=== PATIENT | female | born 1990 | race Caucasian/White ===

== ENCOUNTER 2017-02-18 12:57 | Emergency (ER) | payer OTHER ==
[~2017-02-18] VITALS: Ht 157.5 cm; Wt 70.5 kg
[2017-02-18 13:06] VITALS: Ht 157.5 cm; Wt 70.5 kg
[2017-02-18 16:33] LABS: BASOPHIL # 0.1 10^3/ul (0.0-0.1); BASOPHILS % 0.4 % (0.0-2.0); EOSINOPHILS # 0.1 10^3/ul (0.0-0.5); EOSINOPHILS % 0.5 % (0.0-7.0); HEMATOCRIT 39.2 % (37.0-47.0); HEMOGLOBIN 13.5 g/dl (12.0-16.0); LYMPHOCYTES % 15.4 % (15.0-51.0); MEAN CORPUSCULAR HEMOGLOBIN 30.1 pg (29.0-33.0); MEAN CORPUSCULAR HGB CONC 34.4 g/dl (32.0-37.0); MEAN CORPUSCULAR VOLUME 87.5 fl (82.0-101.0); MEAN PLATELET VOLUME 10.5 fl (7.4-10.4); MONOCYTE # 0.8 10^3/ul (0.3-0.9); NEUTROPHILS % 77.3 % (39.0-77.0); PLATELET COUNT 235 10^3/UL (140-415); RED BLOOD COUNT 4.48 10^6/ul (4.20-5.40); RED CELL DISTRIBUTION WIDTH 12.8 % (11.5-14.5); WHITE BLOOD COUNT 12.9 10^3/ul (4.8-10.8)
[2017-02-18 16:58] LABS: ADD UMIC YES; UR ASCORBIC ACID NEGATIVE (NEGATIVE); UR BACTERIA FEW /HPF (NONE SEEN); UR BILIRUBIN (Dip) NEGATIVE (NEGATIVE); UR BLOOD (Dip) 1+ mg/dL (NEGATIVE); UR CLARITY CLEAR (CLEAR); UR COLOR STRAW (YELLOW); UR GLUCOSE (Dip) NEGATIVE (NEGATIVE); UR KETONES (Dip) NEGATIVE (NEGATIVE); UR LEUKOCYTE ESTERASE (Dip) TRACE Leu/ul (NEGATIVE); UR NITRITE (Dip) NEGATIVE (NEGATIVE); UR RBC 1 /HPF (0-5); UR SPECIFIC GRAVITY (Dip) 1.005 (1.003-1.030); UR TOTAL PROTEIN (Dip) NEGATIVE (NEGATIVE); UR UROBILINOGEN (Dip) NEGATIVE (NEGATIVE)
--- NOTE | 2017-02-18 17:46 | RADRPT ---
PROCEDURE: US OB. CLINICAL INDICATION: Vaginal bleeding. Positive TECHNIQUE: Transabdominal and transvaginal views of the pelvis are available for review. COMPARISON: No prior studies are available for comparison. FINDINGS: Uterus: No evidence of masses and normal in size estimated at 8.9 x 6 x 4.7 cm. Endometrial cavity: Intrauterine gestational sac, yolk sac and pole are present with the foll owing information: [place]ion-rump length:0.97 cm heart rate:138 bpm Gestational sac:2.88 cm Ultrasound estimated gestational age:7 weeks 4 days Small hypoechoic subchorionic hemorrhage measures 0.8 x 0.6 x 0.5 cm. Right ovary/adnexa: Ovarian size is normal estimated at 3 x 2.3 x 2.2 cm. Rounded corpus luteum cy st is present estimated at 2.3 cm in greatest dimension. No adnexal mass lesion is seen. Left ovary/adnexa: Ovarian size normal estimated at 1.9 x 1.7 x 1.3 cm. No ovarian or adnexal mass lesion is seen. Cul-de-sac: There is no free fluid. RPTAT:HJJR IMPRESSION: 1. Single viable intrauterine with an estimated gestational age of 7 weeks 4 days, the es timated date of delivery 10/03/2017. 2. Subchorionic hemorrhage estimated at 0.8 cm in greatest dimension. Consider follow-up evaluatio n. 3. Right ovarian corpus luteum cyst. Physician Larisa Date Time Electronically viewed and signed by Physician Larisa on 02/18/2017 17:46 /
[2017-02-18] MEDS ORDERED: ACET325T33 PO (17:56)
--- NOTE | 2017-02-18 18:07 | ERD ---
ER Documentation Chief Complaint Date/Time DATE: 02/18/17 TIME: 18:02 Chief Complaint vaginal bleed started today with pelvic and lower back pain 7 wks HPI 26-year-old female A2 last menstrual period January 07, 7 weeks presents complaining of vaginal bleeding and intermittent moderate 7 out of 10 of pelvic pain that radiates to her lower back since today. Patient denies any fever, nausea vomiting diarrhea. States that she has an PAYMENT COLLECTOR I will see her in 2 days. ROS All systems reviewed and are negative except as per history of present illness. Medications Home Meds Active Scripts Acetaminophen* (Tylenol*) 325 Mg Tablet, 1 TAB PO Q8 Y for PAIN AND OR ELEVATED TEMP, #20 TAB Prov:MANUEL SUTTON PA-C 02/18/17 PMhx/Soc Medical and Surgical Hx: pt denies Medical Hx, pt denies Surgical Hx Physical Exam Vitals Vital Signs Date Time Temp Pulse Resp B/P Pulse Ox O2 Delivery O2 Flow Rate FiO2 02/18/17 13:06 98.6 63 18 108/53 100 Physical Exam Const: [] Head: Atraumatic Eyes: Normal Conjunctiva ENT: Normal External Ears, Nose and Mouth. Neck: Full range of motion..~ No meningismus. Resp: Clear to auscultation bilaterally Cardio: Regular rate and rhythm, no murmurs Abd: Soft, non tender, non distended. Normal bowel sounds Skin: No petechiae or rashes Back: No midline or flank tenderness Ext: No cyanosis, or edema Neur: Awake and alert Psych: Normal Mood and Affect Result Diagram: 02/18/17 1614 Results 24 hrs Laboratory Tests Test 02/18/17 16:14 02/18/17 16:26 White Blood Count 12.910^3/ul Red Blood Count 4.4810^6/ul Hemoglobin 13.5g/dl Hematocrit 39.2% Mean Corpuscular Volume 87.5fl Mean Corpuscular Hemoglobin 30.1pg Mean Corpuscular Hemoglobin Concent 34.4g/dl Red Cell Distribution Width 12.8% Platelet Count 64057^3/UL Mean Platelet Volume 10.5fl Neutrophils % 77.3% Lymphocytes % 15.4% Monocytes % 6.0% Eosinophils % 0.5% Basophils % 0.4% Nucleated Red Blood Cells % 0.0/100WBC Neutrophils # (Manual) 10.010^3/ul Lymphocytes # 2.010^3/ul Monocytes # 0.810^3/ul Eosinophils # 0.110^3/ul Basophils # 0.110^3/ul Nucleated Red Blood Cells # 0.010^3/ul Beta HCG, Quantitative 230689.0mIU/ml Urine Color STRAW Urine Clarity CLEAR Urine pH 6.0 Urine Specific [place] 1.005 Urine Ketones NEGATIVEmg/dL Urine Nitrite NEGATIVEmg/dL Urine Bilirubin NEGATIVEmg/dL Urine Urobilinogen NEGATIVEmg/dL Urine Leukocyte Esterase TRACELeu/ul Urine Microscopic RBC 1/HPF Urine Microscopic WBC 1/HPF Urine Bacteria FEW/HPF Urine Hemoglobin 1+mg/dL Urine Glucose NEGATIVEmg/dL Urine Total Protein NEGATIVEmg/dl Procedures/MDM 26-year-old female A2 last menstrual period January 07, 7 weeks presents complaining of vaginal bleeding and intermittent moderate 7 out of 10 of pelvic pain that radiates to her lower back since today. States that she has an PAYMENT COLLECTOR I will see her in 2 days. Patient likely has threatened . Low suspicion for ectopic , molar pregnancyLab work was done in the ED. Patient has mild leukocytosis likely due to stress reaction. Beta-hCG was [id number] which is elevated however I have discussed with her to continue to follow -up with her PAYMENT COLLECTOR to get repeat labs. OB ultrasound showed a small subchorionic hemorrhage. Discussed to follow-up with OBGYN. Discussed return to the ER for worsening sensitive. She understands and agrees this plan OB ultrasound: 1. Single viable intrauterine with an estimated gestational age of 7 weeks 4 days, the estimated date of delivery 10/03/2017. 2. Subchorionic hemorrhage estimated at 0.8 cm in greatest dimension. Consider follow-up evaluation. 3. Right ovarian corpus luteum cyst. Departure Diagnosis: Primary Impression: Vaginal bleeding in Condition: Stable Patient Instructions: Vaginal Bleed in Additional Instructions: Call your primary care doctor TOMORROW for an appointment during the next 1-2 days.See the doctor sooner or return here if your condition worsens before your appointment time.Return to this facility in 2 DAYS for a follow-up exam.Return sooner if your condition worsens. Return to this facility if you are not improving as expected. MANUEL SUTTON PA-C Feb 18, 2017 18:07
[2017-02-18 18:20] VITALS: BP 115/58; PULSE 72; RESP 20; TEMP 98.2
== END 2017-02-18 18:24 | disposition home or self-care (01) ==
LOC: FTE 12:57
DX: O20.9 Hemorrhage in early pregnancy, unspecified (principal); R10.2 Pelvic and perineal pain; Z3A.01 Less than 8 weeks gestation of pregnancy
CPT/HCPCS: 36415; 76801; 76817; 81001; 84702; 85025; 86900; 86901; Z7502

== ENCOUNTER 2017-05-23 15:48 | Outpatient (CLI) | payer OTHER ==
[~2017-05-23] VITALS: Ht 165.1 cm; Wt 74.9 kg
[~2017-05-23 15:48] MED LIST: ACET325T33 PO
[2017-05-23] MEDS ORDERED: PREN1TAB13 PO (16:15)
[2017-05-23 16:16] VITALS: BP 103/58; PULSE 72; RESP 18; Ht 165.1 cm; Wt 74.9 kg
--- NOTE | 2017-05-23 17:03 | RADRPT ---
PROCEDURE: US cervix CLINICAL INDICATION: labor TECHNIQUE: Limited OB ultrasound was performed to evaluate the cervix COMPARISON: No prior studies are available for comparison. FINDINGS: There is a single live intrauterine . Normal cardiac activity is identified at a rat e of 146 beats per minute. presentation is breech. Placenta is anterior grade 1-2. There is no evidence of abruption or placenta previa. Single largest pocket of amniotic fluid measures 4.9 cm. The cervix is closed and measures 3.0 cm. There is minimal funneling. IMPRESSION: 1. Single live intrauterine . 2. Cervix is closed and measures 3.0 cm RPTAT: HH .Jonny Alaniz MD, Date Time Electronically viewed and signed by .Jonny Alaniz MD, on 05/23/2017 17:03 .W/
--- NOTE | 2017-05-23 18:09 | TRIAGE ---
OB Triage Datetime Report Generated by CPN: 05/23/2017 18:09 Datetime: 05/23/2017 18:00 Stage of : OB Triage Maternal Assessment Level of Consciousness: Fully Conscious Labor Evaluation Frequency: NONE Monitor Mode: External Resting Tone [place]: Relaxed Heart Rate FHR Baseline Rate: 145 Monitor Mode: External US Variability: AGA Accelerations: AGA Decelerations: AGA Pain Assessment Pain Scale: 0 Pain Goal: 3 Vaginal Exam Membrane Status: Intact Datetime: 05/23/2017 17:00 Stage of : OB Triage Maternal Assessment Level of Consciousness: Fully Conscious Labor Evaluation Frequency: NONE Monitor Mode: External Resting Tone [place]: Relaxed Heart Rate FHR Baseline Rate: 145 Monitor Mode: External US Variability: AGA Accelerations: AGA Decelerations: AGA Pain Assessment Pain Scale: 0 Pain Goal: 3 Vaginal Exam Membrane Status: Intact Datetime: 05/23/2017 16:12 Assessment Type: Triage Maternal Assessment Level of Consciousness: Fully Conscious DTR's/Clonus: DTRs 2+; No Clonus Headache: Denies Blurred Vision: No Respiratory Effort: Unlabored; Regular Rhythm; Equal Expansion Breath Sounds, Left: Clear and Equal Breath Sounds, Right: Clear and Equal Nausea/Vomiting: Denies RUQ Epigastric Pain: Denies Lower Extremities Edema: None Degree: None Upper Extremities Edema: None Degree: None Facial Edema: None Fall Risk Assessment History of Falling: (0) No Secondary Diagnosis: (0) No Ambulatory Aid: (0) Bedrest/Nurse Assist IV Therapy: (0) No Gait: (0) Normal/Bedrest/Immobile Mental Status: (0) Oriented to Own Ability Fall Score: 0 Fall Risk Score Definition: No Risk: No action required Datetime: 05/23/2017 16:10 Time of Arrival: 05/23/2017 15:43 EGA: 20.6 Arrived By: Ambulatory Arrived From: Home Chief Complaint: PT HERE C/O SPOTTING Movement: Present Contractions: Denies/Absent Rupture of Membranes: Denies Vaginal Bleeding: None Vaginal Discharge: Denies Recent Sexual Intercouse: Denies Abdominal Trauma: Not Applicable Patient Complaints: None Time Provider Notified: 05/23/2017 16:00 Provider Notified: RODDY Initial Plan: CVL Datetime: 05/23/2017 16:09 Monitor Mode: External Monitor Mode: External US
--- NOTE | 2017-05-23 18:14 | CONS ---
Date/Time of Note Date/Time of Note DATE: 05/23/17 TIME: 18:09 Consultation Date/Type/Reason Admit Date/Time . Constitutional: No chills, No diaphoresis, No disoriented, No febrile, No improved, No no complaints, No other, No poor po, No requiring IVF, No requiring O2 Eyes: No discharge, No no complaints, No other, No pain, No redness, No visual change ENT: No bleeding, No congestion, No discharge, No dysphagia, No no complaints, No other, No pain, No sore throat Cardiovascular: no complaints, No chest pain, No edema, No lightheadedness, No orthopenea, No other, No palpitations, No paroxysmal nocturnal dyspnea Gastrointestinal: No blood, No constipation, No decreased appetite, No diarrhea , No flatus, No nausea, No no complaints, No other, No pain, No passing stool, No vomiting Genitourinary: other, No bleeding, No discharge, No dysuria, No flank pain, No hematuria, No no complaints Musculoskeletal: No back pain, No bone/joint pain, No neck pain, No no complaints, No other, No restricted range of motion, No swelling Skin: No bruising, No erythema, No laceration, No no complaints, No other, No pruritis, No rash, No skin lesions Neurologic: No confusion, No dizziness, No focal-weakness, No headache, No no complaints, No other, No seizure, No syncope Endocrine: No dry skin, No no complaints, No other, No polydypsia, No polyuria , No temp intolerance Additional Comments .On ultrasound study report is single live intrauterine with heart activity 146 bpm in breech presentation placenta was anterior grade 1-2 and there was no evidence of abruption or placenta previa single largest pocket of amniotic fluid was measured at 4.9 cm. The cervical length was 3 cm was closed. Disposition with this finding patient was discharged home to be followed in her distribution agent's clinic and to return to triage area if any repeat of vaginal bleeding or low l movement Social History Smoking Status: Never smoker Exam/Review of Systems Vital Signs Vitals Vital Signs Date Time Temp Pulse Resp B/P Pulse Ox O2 Delivery O2 Flow Rate FiO2 05/23/17 16:16 98.8 72 18 103/58 96 Room Air STEVEN PEREYRA MD May 23, 2017 18:14
== END 2017-05-23 18:15 | disposition home or self-care (01) ==
LOC: OBT 15:48 → L-D 15:49 → OBT 18:15
DX: O46.8X2 Other antepartum hemorrhage, second trimester (principal); Z3A.20 20 weeks gestation of pregnancy
CPT/HCPCS: 76817; Z7500; G0463

== ENCOUNTER 2017-06-10 22:39 | Outpatient (CLI) | payer OTHER ==
[~2017-06-10] VITALS: Ht 163.8 cm; Wt 76.7 kg
[~2017-06-10 22:39] MED LIST changes: -ACET325T33 PO; +PREN1TAB13 PO
[2017-06-10 23:06] VITALS: BP 106/51; PULSE 77; RESP 18; Ht 163.8 cm; Wt 76.7 kg
--- NOTE | 2017-06-11 00:03 | RADRPT ---
PROCEDURE: US OB amniotic fluid index. CLINICAL INDICATION: Contractions. Clinical estimate gestational age of 23 weeks 3 days with amanda mated date of delivery 10/04/2017 TECHNIQUE: Multiple sonographic images of the pelvis were obtained. The images were reviewed on a PACS workstation. COMPARISON: 05/23/2017 FINDINGS: There is a single live intrauterine gestation. Cardiac activity is present with 154 beats per minut e. There is a breech position. The placenta is bilobed primarily anterior with smaller posterior lobe. There is no evidence for an abruption. There is a normal amount of amniotic fluid with maximum vertical pocket equals 4.3 cm IMPRESSION: Single live intrauterine gestation. Normal maximum vertical pocket of 4.3 cm. The placenta is bilobe d primarily anterior with smaller posterior lobe. RPTAT: HJES .Petey Ryan MD, Date Time Electronically viewed and signed by .Petey Ryan MD, on 06/11/2017 00:02 .S/
--- NOTE | 2017-06-11 02:17 | PN ---
Triage Information Date/Time Reason for visit: DFM Weeks of Gestation 23 2/7 wks /Para Diabetes: none Hypertention: none Additional information 26 Year-old with SIUP at 23 2/7 wks presents with a chief complaint of DFM. She denies nausea, vomiting, shortness of breath, chest pain, abdominal pain, contractions, headache, visual changes, vaginal bleeding or LOF. Objective Vital Signs Date Time Temp Pulse Resp B/P Pulse Ox O2 Delivery O2 Flow Rate FiO2 06/10/17 23:06 98.3 77 18 106/51 Room Air Heart Rate: 130's Contractions: None Exam General: Patient appears well, alert and oriented, NAD, appropriate mood and affect ABD: gravid, soft, non-tender. Back: No CVA tenderness (B/L) LE: No clubbing, cyanosis, edema, thigh or calf tenderness bilaterally FHT: 130 bpm , moderate variability with acceleration, no deceleration-category I Contractions: None Disposition: Discharge Assessment/Plan 26 Year-old with SIUP at 23 2/7 wks c/o DFM - FHR: No sign of metabolic acidosis- Category I - Continuous EFM, toco - Contractions: None - US performed: nml QUINTIN, placenta bilobe, copy of her us given to discuss with her primary OB - Symptoms and sign of labor, preeclampsia, kick count discussed with patient, she voiced understanding. All of her questions answered. - Patient was discharged home in stable condition with the appropriate discharge instructions provided. I would like patient to have close follow-up with her primary physician or outpatient clinic in 1-2 days or return to the ER for worsening symptoms or any other urgent concerns. TAM HAWKINS Jun 11, 2017 02:17
--- NOTE | 2017-06-11 05:21 | TRIAGE ---
OB Triage Datetime Report Generated by CPN: 06/11/2017 04:56 Datetime: 06/11/2017 01:14 Stage of : OB Triage Pain Assessment Pain Scale: 0 Pain Presence: Intermittent Datetime: 06/11/2017 01:07 Category: Category II Datetime: 06/11/2017 01:00 Comments: DIFFICULT TO TRACE Datetime: 06/11/2017 00:54 Stage of : OB Triage Pain Assessment Pain Scale: 0 Pain Presence: None/Denies Datetime: 06/11/2017 00:26 Pain Assessment Pain Scale: 0 Pain Presence: None/Denies Datetime: 06/11/2017 00:13 Pain Assessment Pain Scale: 0 Pain Presence: None/Denies Datetime: 06/11/2017 00:10 Accelerations: 10X10 Datetime: 06/11/2017 00:00 Labor Evaluation Frequency: 0 Monitor Mode: External Monitor Mode: External US FHR Baseline Changes: No Baseline Change Variability: Moderate 6-25 bpm Accelerations: 15X15 Decelerations: None Category: Category I Datetime: 06/10/2017 23:59 Pain Assessment Pain Scale: 0 Pain Presence: None/Denies Datetime: 06/10/2017 23:25 Stage of : OB Triage Pain Assessment Pain Scale: 0 Pain Presence: None/Denies Datetime: 06/10/2017 23:12 Pain Assessment Pain Scale: 0 Pain Presence: None/Denies Datetime: 06/10/2017 23:00 Labor Evaluation Frequency: 0 Monitor Mode: External Heart Rate FHR Baseline Rate: 145 FHR Baseline Changes: No Baseline Change Variability: Moderate 6-25 bpm Accelerations: 15X15 Decelerations: None Category: Category I Datetime: 06/10/2017 22:58 Stage of : OB Triage Time of Arrival: 06/10/2017 22:28 EGA: 23.3 Arrived By: Wheelchair Arrived From: Home Chief Complaint: DFM Movement: Decreased Contractions: Denies/Absent Rupture of Membranes: Denies Vaginal Bleeding: None Vaginal Discharge: Denies Recent Sexual Intercouse: Denies Abdominal Trauma: Not Applicable Patient Complaints: None Time Provider Notified: 06/10/2017 22:50 Provider Notified: DR HAWKINS Initial Plan: CALL MD EFM Maternal Assessment Level of Consciousness: Fully Conscious DTR's/Clonus: DTRs 2+; No Clonus Headache: Denies Blurred Vision: No Respiratory Effort: Unlabored; Regular Rhythm; Equal Expansion Breath Sounds, Left: Clear and Equal Breath Sounds, Right: Clear and Equal Nausea/Vomiting: Denies RUQ Epigastric Pain: Denies Lower Extremities Edema: None Degree: None Upper Extremities Edema: None Degree: None Facial Edema: None Temperature Route: Oral Fall Risk Assessment History of Falling: (0) No Secondary Diagnosis: (0) No Ambulatory Aid: (0) Bedrest/Nurse Assist IV Therapy: (0) No Gait: (0) Normal/Bedrest/Immobile Mental Status: (0) Oriented to Own Ability Fall Score: 0 Fall Risk Score Definition: No Risk: No action required Datetime: 06/10/2017 22:44 Stage of : OB Triage Maternal Assessment Level of Consciousness: Fully Conscious DTR's/Clonus: DTRs 2+; No Clonus Headache: Denies Blurred Vision: No Respiratory Effort: Unlabored; Regular Rhythm; Equal Expansion Breath Sounds, Left: Clear and Equal Breath Sounds, Right: Clear and Equal Nausea/Vomiting: Denies RUQ Epigastric Pain: Denies Lower Extremities Edema: None Degree: None Upper Extremities Edema: None Degree: None Facial Edema: None Temperature Route: Oral Fall Risk Assessment History of Falling: (0) No Secondary Diagnosis: (0) No Ambulatory Aid: (0) Bedrest/Nurse Assist IV Therapy: (0) No Gait: (0) Normal/Bedrest/Immobile Mental Status: (0) Oriented to Own Ability Fall Score: 0 Fall Risk Score Definition: No Risk: No action required Monitor Mode: External Monitor Mode: External US Pain Assessment Pain Scale: 0 Pain Presence: None/Denies Datetime: 05/23/2017 16:12 Fall Score: 0 Fall Risk Score Definition: No Risk: No action required Datetime: 05/23/2017 16:10 EGA: 20.6
== END 2017-06-11 01:36 | disposition home or self-care (01) ==
LOC: OBT 22:39 → L-D 22:41 → OBT 06-11 01:36
PROVIDERS: ATTEND Obstetrics & Gynecology
DX: O36.8120 Decreased fetal movements, second trimester, not applicable or unspecified (principal); Z3A.23 23 weeks gestation of pregnancy
CPT/HCPCS: 76815; Z7500; G0463

== ENCOUNTER 2017-08-07 13:53 | Outpatient (CLI) | END 2017-08-07 16:45 | disposition home or self-care (01) ==

== ENCOUNTER 2017-08-13 02:00 | Inpatient (IN) | END 2017-08-16 09:50 | disposition home or self-care (01) | DRG 781 ==

== ENCOUNTER 2017-08-22 12:16 | Outpatient (CLI) | END 2017-08-22 13:50 | disposition home or self-care (01) ==

== ENCOUNTER 2017-09-26 21:40 | Inpatient (IN) | END 2017-09-30 17:30 | disposition home or self-care (01) | DRG 766 ==